=== PATIENT | female | born 1975 | race Caucasian/White ===

== ENCOUNTER 2022-12-15 16:37 | Emergency (ER) | payer OTHER, MEDICAID ==
[~2022-12-15] VITALS: Ht 177.8 cm; Wt 118.0 kg
[2022-12-15] MEDS ORDERED: HYDROcodone-ACET 10/325MG TAB PO ONE (17:00)
[2022-12-15] MEDS ORDERED: ONDANSETRON ODT 4 MG TAB PO ONE (17:00)
[2022-12-15 17:54] LABS: Alanine Aminotransferase 72 U/L (7-40); Albumin 3.9 g/dL (3.2-4.8); Alkaline Phosphatase 67 U/L (46-116); Anion Gap 7 (5-15); Aspartate Aminotransferase 90 U/L (13-40); BUN/Creatinine Ratio 25.4 (10.0-20.0); Bilirubin, Total 0.4 mg/dL (0.2-1.0); Blood Urea Nitrogen 18 mg/dL (9-23); Calcium 8.5 mg/dL (8.7-10.4); Carbon Dioxide 26 mmol/L (20-30); Chloride 104 mmol/L (98-107); Glucose 83 mg/dL (74-106); Potassium 3.6 mmol/L (3.5-5.1); Sodium 137 mmol/L (136-145); Total Protein 6.2 g/dL (5.7-8.2)
[2022-12-15 18:00] LABS: Basophils # (auto) 0 10 ^3/uL (0-0.2); Basophils % (auto) 0.3 % (0.0-2.0); Eosinophils # (auto) 0.1 10 ^3/uL (0-0.8); Eosinophils % (auto) 0.6 % (0.0-7.0); Hematocrit 37.8 % (36.0-46.0); Hemoglobin 12.7 g/dL (12.2-16.2); Lymphocytes # (auto) 1.6 10 ^3/uL (0.4-5.4); Lymphocytes % (auto) 17.7 % (10.0-50.0); Mean Corpuscular Hemoglobin 28.1 pg (28.0-32.0); Mean Corpuscular Hgb Conc. 33.5 g/dL (32.0-36.0); Mean Corpuscular Volume 83.9 fL (80.0-100.0); Monocytes # (auto) 0.6 10 ^3/uL (0-1.3); Monocytes % (auto) 6.3 % (0.0-12.0); Neutrophils # (auto) 6.8 10 ^3/uL (1.6-8.6); Neutrophils % (auto) 75.1 % (37.0-80.0); Nucleated Red Blood Cells % 0.2 %; Red Blood Cells 4.51 10^6/uL (4.0-5.20); Red Cell Distribution Width 13.8 % (11.8-14.3)
[2022-12-15] MEDS ORDERED: HYDROmorphone HCL 2 MG/ML VL/or syr IM ONE (18:45)
[2022-12-15] MEDS ORDERED: TRAM50TA2 PO (20:24)
[2022-12-15] MEDS ORDERED: IBUP-1455 PO (20:24)
[2022-12-15 20:42] VITALS: BP 130/81; PULSE 73; RESP 18; TEMP 98.4; O2SAT 95
== END 2022-12-15 20:44 | disposition home or self-care (01) ==
LOC: ER 16:37 → EDBD 16:37 → ER 20:43
DX: S30.0XXA Contusion of lower back and pelvis, initial encounter (principal); S09.90XA Unspecified injury of head, initial encounter; W18.39XA Other fall on same level, initial encounter; Y93.89 Activity, other specified; Y92.89 Other specified places as the place of occurrence of the external cause; Y99.8 Other external cause status
CPT/HCPCS: 36415; 70450; 72100; 80053; 85025; 99284; Q0162